=== PATIENT | female | born 1980 | race Caucasian/White ===

== ENCOUNTER → 2016-06-19 | Outpatient (CLI) | payer BC ==
--- NOTE | 2016-06-19 16:12 | US ---
EXAMINATION TYPE: US pelvic complete DATE OF EXAM: 06/19/2016 3:47 PM COMPARISON: NONE CLINICAL HISTORY: 36-year-old female N92.4 Pre Yesika Menorrhagia. Patient states heavy menses, anemia Date of LMP: 05/17/2016 TECHNIQUE: Multiple transabdominal sonographic images of the pelvis are obtained. FINDINGS: Uterus: Anteverted measuring 8.6 x 3.7 x 4.1 cm Endometrial Stripe: 0.4 cm, within normal limits. Right Ovary: 3.5 x 2.2 x 3.1 cm for a volume of 12.7 mL. There is a dominant follicle or functional cyst measuring 1.5 cm within. Left Ovary: 2.1 x 1.4 x 2.2 cm for a volume of 3.3 mL. No evident adnexal abnormality or cul-de-sac free fluid. IMPRESSION: No specific abnormality of the pelvis utilizing transabdominal scanning.
== END | disposition home or self-care (01) ==
LOC: RADUSWWP 15:34
PROVIDERS: ATTEND Family Medicine
DX: N92.4 Excessive bleeding in the premenopausal period (principal)
CPT/HCPCS: 76856

== ENCOUNTER → 2023-07-03 | Outpatient (CLI) | payer BC ==
--- NOTE | 2023-07-05 08:38 | MM ---
Reason for Exam: Screening (asymptomatic). Last mammogram was performed 9 year(s) and 10 month(s) ago. Patient History: Menarche at age 13. First Full-Term at age 21. Premenopausal. Maternal grandmother had breast cancer, age 52. Risk Values: Erica 5 year model risk: 0.6%. NCI Lifetime model risk: 8.9%. Prior Study Comparison: 09/09/2013 Bilateral Screening Mammogram, [facility]. 09/16/2013 Right Diagnostic Mammogram, [facility]. Tissue Density: The breasts are heterogeneously dense, which may obscure small masses. Findings: Analyzed By CAD. No suspicious grouped calcifications and benign-appearing calcifications. There is an area of asymmetric density in the upper outer margin the right breast. Spot compression view recommended. Overall Assessment: Incomplete: need additional imaging evaluation, BI-RAD 0 Management: Diagnostic Mammogram of the right breast. . Patient should continue monthly self-breast exams. A clinical breast exam by your physician is recommended on an annual basis. This exam should not preclude additional follow-up of suspicious palpable abnormalities. Note on Erica scores and lifetime risk: 1. A Erica score greater than 3% is considered moderate risk. If this is the case, consider specialist referral to assess eligibility for a risk reducing agent. 2. If overall lifetime risk for the development of breast cancer is 20% or higher, the patient may qualify for future screening with alternating mammogram and breast MRI. Electronically signed and approved by: Thomas Becerra M.D. Radiologis
== END | disposition home or self-care (01) ==
LOC: RADMAMWWP 10:48
PROVIDERS: ATTEND Family Medicine
DX: Z12.31 Encounter for screening mammogram for malignant neoplasm of breast (principal); Z80.3 Family history of malignant neoplasm of breast
CPT/HCPCS: 77063; 77067

== ENCOUNTER → 2023-07-10 | Outpatient (CLI) | payer BC ==
--- NOTE | 2023-07-10 13:49 | MM ---
Reason for Exam: Additional evaluation requested from abnormal screening. Last screening mammogram was performed less than 1 month ago. Patient History: Menarche at age 13. First Full-Term at age 21. Premenopausal. Maternal grandmother had breast cancer, age 52. Risk Values: Erica 5 year model risk: 0.6%. NCI Lifetime model risk: 8.9%. Prior Study Comparison: 09/09/2013 Bilateral Screening Mammogram, [facility]. 07/03/2023 Bilateral MG 3D screening mammo w/cad, [facility]. Tissue Density: Right: The breasts are heterogeneously dense, which may obscure small masses. Findings: Analyzed By CAD. Persistent 1.5 cm circumscribed isodense mass approximately 10:00 right breast in a peripheral location. Further ultrasound evaluation recommended. Overall Assessment: Incomplete: need additional imaging evaluation, BI-RAD 0 Management: Diagnostic Breast Ultrasound of the right breast. Electronically signed and approved by: Alannah Lopez M.D. Radiologist
--- NOTE | 2023-07-10 15:08 | USB ---
Reason for Exam: Additional evaluation requested from abnormal screening. Patient History: Menarche at age 13. First Full-Term at age 21. Premenopausal. Maternal grandmother had breast cancer, age 52. Risk Values: Erica 5 year model risk: 0.6%. NCI Lifetime model risk: 8.9%. Technique: Method: Whole Breast Handheld. Prior Study Comparison: 09/09/2013 Bilateral Screening Mammogram, [facility]. 09/16/2013 Right Diagnostic Mammogram, [facility]. 07/03/2023 Bilateral MG 3D screening mammo w/cad, [facility]. Findings: The whole breast of the right breast, the axilla of the right breast and the retroareolar of the right breast were scanned. A complete US of all four quadrants of the breast, axilla, and retro-areolar region were reviewed. At the 9:00 position of a 9 cm from the nipple, there is a lobulated hypoechoic mass with some peripheral vascularity measuring 1.8 x 1.6 x 1.3 cm. Posterior through-transmission is present. No other solid or cystic lesion or axillary lymphadenopathy. Overall Assessment: Suspicious, BI-RAD 4 Management: Ultrasound Core Biopsy of the right breast. Results were given to the patient verbally at the time of exam. Electronically signed and approved by: Alannah Lopez M.D. Radiologist
== END | disposition home or self-care (01) ==
LOC: RADMAMWWP 13:18
PROVIDERS: ATTEND Family Medicine
DX: R92.331 Mammographic heterogeneous density, right breast (principal); Z80.3 Family history of malignant neoplasm of breast
CPT/HCPCS: 77061; 77065

== ENCOUNTER → 2023-07-18 | Day surgery (SDC) | payer BC ==
--- NOTE | 2023-07-25 13:36 | MM ---
Reason for Exam: Post Procedure Mammogram. Last screening mammogram was performed less than 1 month ago. Patient History: Menarche at age 13. First Full-Term at age 21. Premenopausal. Maternal grandmother had breast cancer, age 52. Risk Values: Erica 5 year model risk: 0.6%. NCI Lifetime model risk: 8.9%. Prior Study Comparison: 09/16/2013 Right Diagnostic Mammogram, [facility]. 07/03/2023 Bilateral MG 3D screening mammo w/cad, [facility]. 07/10/2023 Right US breast workup RT, [facility]. 07/10/2023 Right MG 3D work up w/cad RT, [facility]. Tissue Density: Right: The breasts are heterogeneously dense, which may obscure small masses. Pathology Description: Location: 9 o'clock. Needle Type: Mammotome Cores: 6 Skin Nicks: 1 Gauge: 13 The procedure of ultrasound guided core biopsy was explained to the patient. Benefits, alternatives, and risks were discussed. An informed consent was then obtained. A timeout was performed. The patient was placed in supine positioning for imaging and for the procedure. The overlying skin was prepped and draped in usual sterile fashion. Lidocaine was used as anesthetic into the skin and subcutaneous tissue up to area of concern in the right breast. A small skin clarence was made with surgical scalpel. Under ultrasound guidance, a 12-gauge vacuum assisted biopsy gun device was used to obtain 6 core samples. A biopsy clip was left in lesion. Hydromark butterfly core marker was placed. The patient tolerated the procedure well without any immediate complication. The patient was kept in the radiology department for short stay after the procedure and then discharged home in stable condition. Postprocedure mammogram: The patient was transferred to mammography for physician ordered post procedure mammogram for clip placement verification. Impression: Successful ultrasound guided core biopsy of area of concern in the right breast, full pathology results to follow. Recommendations: 1. Recommendations are pending pathology results. Pathology Results: Result: Benign, Fibrocystic change. Pathology and radiology were reviewed. Findings are discordant. RIGHT BREAST, NINE O'CLOCK, CORE BIOPSY: Benign breast tissue with fibrocystic changes. Rare microcalcifications are identified. Overall Assessment: Benign Assessment: MG diagnostic mammo RT wo CAD - Right: Suspicious, BI-RAD 4. Management: Surgical Consultation of the right breast. Consider needle localization and surgical excision. Electronically signed and approved by: Waqar Klein D.O. Radiologis
== END ==
LOC: RADUSWWP 07:37
PROVIDERS: ATTEND Family Medicine
DX: R92.8 Other abnormal and inconclusive findings on diagnostic imaging of breast (principal)
CPT/HCPCS: 88305; 77065; 19083; A4648

== ENCOUNTER → 2023-08-08 | Outpatient (CLI) | payer BC ==
[2023-08-08 09:34] VITALS: BP 130/80; PULSE 88; RESP 17; TEMP 98.1
--- NOTE | 2023-08-08 10:19 | P.GSCN ---
History of Present Illness Consult date: 08/08/23 Reason for Consult: abnormal right breast radiograph Requesting physician: Thomas Trammell History of present illness: Janine is a 43 year old female seen in consultation for Dr. Trammell regarding a radiographic abnormality in the right breast. She had a bilateral mammogram on 07-03-23 which led to a right breast diagnostic mammogram and ultrasound on 07-10-23. These led to an ultrasound guided core biopsy on 07-18-23. This was benign but felt to be discordant. This was personally reviewed with Dr. Crain. This was a routine screening mammogram on 07-03-2023, the patient did not feel any new lumps masses or nodules of concern in either breast. She is not complaining of any recent trauma or infection in the breast. She is not complaining of any nipple discharge. She has never had any surgery on either breast. Note Dr. Trammell/ Tony THOMPSON 07-03-23 reviewed caffeine: coffee and pop daily nicotine: none, stopped 20 years ago chocolate: occasional BCP: used them many years ago for < 3 years, IUD Merina used for 7 years, recently removed about 1 month ago hormones: none Family History: maternal grandmother: breast cancer, leukemia Hormonal History: menarche: 13 [id number], breast fed: yes, age at first live : 21 periods ? regular, LMP: May 2023 Surgical History: gastric bypass Medical History: suspected VAZQUEZ severe chronic anemia ? cause (occasional iron infusion); followed by Dr. Mckeon Social History: nicotine: as above alcohol: occasional drugs: none Review of Systems - Constitutional Reports sweats, Reports weight gain, Denies fever, Denies weight loss - EENT Eyes: denies blurred vision Ears: deny: decreased hearing Ears, nose, mouth and throat: Denies dysphagia - Breasts bilateral: as per HPI - Cardiovascular Reports palpitations, Reports shortness of breath, Denies chest pain - Respiratory Denies cough, Denies 7 - Gastrointestinal Reports as per HPI, Reports diarrhea - Genitourinary Genitourinary: Denies dysuria, Denies hematuria Menstruation: Reports as per HPI - Musculoskeletal Reports myalgias - Integumentary Integumentary Comment(s): scalp dermatitis - Neurological Reports headaches, Denies syncope - Psychiatric Reports anxiety, Reports depression - Endocrine Reports fatigue, Reports weight change - Hematologic/Lymphatic Reports as per HPI Hematologic/Lymphatic Comment(s): bruises easily - Allergic/Immunologic Reports as per HPI Past Medical History Additional Past Medical History / Comment(s): low iron, unknown cause History of Any Multi-Drug Resistant Organisms: None Reported Additional Past Surgical History / Comment(s): Harrison-n-y 2009 Past Anesthesia/Blood Transfusion Reactions: No Reported Reaction Past Psychological History: Anxiety, Depression, PTSD Smoking Status: Former smoker Past Alcohol Use History: None Reported Additional Past Alcohol Use History / Comment(s): quit smoking 2002 Past Drug Use History: Marijuana Additional Drug Use History / Comment(s): rarely THC use - Past Family History Father History Unknown: Yes Mother History Unknown: Yes Medications and Allergies Home Medications Medication Instructions Recorded Confirmed Type Cetirizine HCl [Zyrtec] 10 mg PO DAILY 08/08/22 08/08/23 History Montelukast [Singulair] 10 mg PO DAILY 08/08/22 08/08/23 History Sertraline [Zoloft] 100 mg PO DAILY 08/08/22 08/08/23 History traZODone HCL [Trazodone HCl] 100 mg PO DAILY 08/08/22 08/08/23 History Allergies Allergy/AdvReac Type Severity Reaction Status Date / Time latex AdvReac Rash/Hives Verified 08/08/23 09:26 Penicillins AdvReac Rash/Hives Verified 08/08/23 09:26 Surgical - Exam Vital Signs Temp Pulse Resp BP Pulse Ox 98.1 F 88 17 130/80 96 08/08/23 09:27 08/08/23 09:27 08/08/23 09:27 08/08/23 09:27 08/08/23 09:27 - General moderate distress - Eyes normal ocular movement - Neck trachea midline - Respiratory normal respiratory effort, clear to auscultation - Cardiovascular Rhythm: regular Heart Sounds: normal: S1, S2 - Abdomen Abdomen: soft, non tender, no guarding, no rigid, no rebound - Integumentary normal turgor - Neurologic no disoriented, no combative - Musculoskeletal normal gait - Psychiatric oriented to time, oriented to person, oriented to place, speech is normal, memory intact Breast Exam: BRA: 42D Inspection: Bilateral grade 3 ptosis Well-healed scar from prior right breast core biopsy Palpation: Right breast: Multi positional exam fibroglandular tissue, slight increased nodularity at the 10 o'clock position no discrete mass Right axilla: No adenopathy of concern Left breast: Multi positional exam no dominant masses or nodules of concern Left axilla: No adenopathy of concern Results Mammogram and ultrasound personally reviewed with Dr. Crain Assessment and Plan Assessment: Impression: Radiographic abnormality right breast BI-RADS 4/core biopsy discordant History of chronic severe anemia BMI 46.1 Plan: medical clearance check HGB Needle localization excisional lumpectomy of lesion of concern, possible right oncoplastic tissue transfer I discussed with the patient and her the risks and benefits of the procedure. We have discussed repeating a core biopsy however secondary to the radiographic appearance of the abnormality it is felt that this will most likely need to come out no matter what. The patient and her understand and wish to proceed. Of concern is her chronic severe anemia. We will obtain a hem oglobin and will get medical clearance prior to needle localization and lumpectomy. Risk of the procedure include but are not limited to bleeding, infection, reaction to the anesthetic. If the findings were to be discordant then further tissue acquisition may be necessary. They understand and wish to proceed. CC: Dr. Trammell
== END ==
LOC: WWCWWP 09:07
PROVIDERS: ATTEND Surgery
DX: R92.341 Mammographic extreme density, right breast (principal); R92.8 Other abnormal and inconclusive findings on diagnostic imaging of breast; Z80.3 Family history of malignant neoplasm of breast; Z87.891 Personal history of nicotine dependence; Z87.39 Personal history of other diseases of the musculoskeletal system and connective tissue; Z88.0 Allergy status to penicillin; Z91.040 Latex allergy status

== ENCOUNTER → 2023-09-06 | Outpatient (CLI) | payer BC ==
[2023-09-06 10:20] VITALS: BP 143/96; PULSE 70; RESP 16; TEMP 98.1
--- NOTE | 2023-09-06 10:36 | P.PN ---
Subjective Progress Note Date: 09/06/23 Principal diagnosis: discordant right breast core biopsy abnormal right breast radiograph Requesting physician: Thomas Trammell History of present illness: Janine is a 43 year old female seen in consultation for Dr. Trammell regarding a radiographic abnormality in the right breast. She had a bilateral mammogram on 07-03-23 which led to a right breast diagnostic mammogram and ultrasound on 07-10-23. These led to an ultrasound guided right core biopsy on 07-18-23. This was benign but felt to be discordant. This was personally reviewed with Dr. Crain. This was a routine screening mammogram on 07-03-2023, the patient did not feel any new lumps masses or nodules of concern in either breast. She is not complaining of any recent trauma or infection in the breast. She is not complaining of any nipple discharge. She has never had any surgery on either breast. Note Dr. Trammell/ Tony THOMPSON 07-03-23 reviewed Surgical clearance obtained from Dr. Mckeon on 09-04-2023, hemoglobin at that time 12.4 caffeine: coffee and pop daily nicotine: none, stopped 20 years ago chocolate: occasional BCP: used them many years ago for < 3 years, IUD Merina used for 7 years, recently removed about 1 month ago hormones: none Family History: maternal grandmother: breast cancer, leukemia Hormonal History: menarche: 13 [id number], breast fed: yes, age at first live : 21 periods ? regular, LMP: May 2023 Surgical History: gastric bypass Medical History: suspected VAZQUEZ severe chronic anemia ? cause (occasional iron infusion); followed by Dr. Mckeon Social History: nicotine: as above alcohol: occasional drugs: none Review of Systems - Constitutional Reports sweats, Reports weight gain, Denies fever, Denies weight loss - EENT Eyes: denies blurred vision Ears: deny: decreased hearing Ears, nose, mouth and throat: Denies dysphagia - Breasts bilateral: as per HPI - Cardiovascular Reports palpitations, Reports shortness of breath, Denies chest pain - Respiratory Denies cough, - Gastrointestinal Reports as per HPI, Reports diarrhea - Genitourinary Genitourinary: Denies dysuria, Denies hematuria Menstruation: Reports as per HPI - Musculoskeletal Reports myalgias - Integumentary Integumentary Comment(s): scalp dermatitis - Neurological Reports headaches, Denies syncope - Psychiatric Reports anxiety, Reports depression - Endocrine Reports fatigue, Reports weight change - Hematologic/Lymphatic Reports as per HPI Hematologic/Lymphatic Comment(s): bruises easily - Allergic/Immunologic Reports as per HPI Past Medical History Additional Past Medical History / Comment(s): low iron, unknown cause History of Any Multi-Drug Resistant Organisms: None Reported Additional Past Surgical History / Comment(s): Harrison-n-y 2010 Past Anesthesia/Blood Transfusion Reactions: No Reported Reaction Past Psychological History: Anxiety, Depression, PTSD Smoking Status: Former smoker Past Alcohol Use History: None Reported Additional Past Alcohol Use History / Comment(s): quit smoking 2002 Past Drug Use History: Marijuana Additional Drug Use History / Comment(s): rarely THC use - Past Family History Father History Unknown: Yes Mother History Unknown: Yes Medications and Allergies Home Medications Medication Instructions Recorded Confirmed Type Cetirizine HCl [Zyrtec] 10 mg PO DAILY 08/08/22 08/08/23 History Montelukast [Singulair] 10 mg PO DAILY 08/08/22 08/08/23 History Sertraline [Zoloft] 100 mg PO DAILY 08/08/22 08/08/23 History traZODone HCL [Trazodone HCl] 100 mg PO DAILY 08/08/22 08/08/23 History Allergies Allergy/AdvReac Type Severity Reaction Status Date / Time latex AdvReac Rash/Hives Verified 08/08/23 09:26 Penicillins AdvReac Rash/Hives Verified 08/08/23 09:26 Objective - Vital Signs Vital signs: Intake & Output 09/05/23 09/06/23 09/06/23 18:59 06:59 18:59 Weight 129.274 kg - Constitutional General appearance: Present: cooperative - EENT Eyes: Present: EOMI - Neck Neck: Present: normal ROM - Respiratory Respiratory: bilateral: CTA - Cardiovascular Heart sounds: normal: S1, S2 - Integumentary Integumentary: Present: normal turgor - Musculoskeletal Musculoskeletal: Present: gait normal - Psychiatric Psychiatric: Present: A&O x's 3, appropriate affect, intact judgment & insight - Additional findings Additional findings: Breast Exam: BRA: 42D Inspection: Bilateral grade 3 ptosis Well-healed scar from prior right breast core biopsy Palpation: Right breast: Multi positional exam fibroglandular tissue, slight increased nodularity at the 10 o'clock position no discrete mass Right axilla: No adenopathy of concern Left breast: Multi positional exam no dominant masses or nodules of concern Left axilla: No adenopathy of concern Assessment and Plan Assessment: Impression: Radiographic abnormality right breast BI-RADS 4/core biopsy discordant History of chronic severe anemia; most recent Hgb 7-9-24 12.4 BMI 46.1 Plan: medical clearance obtained from Dr. Mckeon Needle localization excisional lumpectomy of lesion of concern right breast , possible right oncoplastic tissue transfer I discussed with the patient and her the risks and benefits of the procedure. We have discussed repeating a core biopsy however secondary to the radiographic appearance of the abnormality it is felt that this will most likely need to come out no matter what. The patient and her understand and wish to proceed. Of concern is her chronic severe anemia. We will obtain a hemoglobin and will get medical clearance prior to needle localization and lumpectomy. Risk of the procedure include but are not limited to bleeding, infection, reaction to the anesthetic. If the findings were to be discordant then further tissue acquisition may be necessary. They understand and wish to proceed. Functional assessment: Arm abduction past Preoperative education given to the patient CC: Dr. Trammell
== END ==
LOC: WWCWWP 09:00
PROVIDERS: ATTEND Surgery
DX: R92.8 Other abnormal and inconclusive findings on diagnostic imaging of breast (principal); R92.341 Mammographic extreme density, right breast; Z86.2 Personal history of diseases of the blood and blood-forming organs and certain disorders involving the immune mechanism; Z80.3 Family history of malignant neoplasm of breast; Z88.0 Allergy status to penicillin; Z87.891 Personal history of nicotine dependence; Z91.040 Latex allergy status

== ENCOUNTER 2023-09-11 08:09 | Day surgery (SDC) | payer BC ==
[2023-09-06 10:26] VITALS: BMI 47.4
[~2023-09-11 08:09] MED LIST: HYDROmorphone 0.5 MG/0.5 ML SYRINGE IVP PRN; LIDOCAINE 1% (10MG/ML) FOR IV START INTRADERMA PRN; MIDAZOLAM 2 MG/2 ML VIAL IV PRN; fentaNYL (PF) 50 MCG/ML 2 ML AMP IVP PRN
[2023-09-11] MEDS: LACTATED RINGERS 1,000 ML IV SCH (08:52)
[2023-09-11] MEDS: IV FLUID CONTINUATION 1,000 ML IV ONE (08:53)
[2023-09-11] MEDS: ALPRAZolam 0.5 MG TAB PO STA (09:03)
[2023-09-11] MEDS: ONDANSETRON 4 MG/2 ML VIAL IVP ONE (09:03)
[2023-09-11] MEDS: DEXAMETHASONE SOD PHOSPHATE 4 MG/ML 1 ML VIAL IV ONE (09:03)
[2023-09-11] MEDS: ACETAMINOPHEN TAB 500 MG TAB PO PRN (09:03)
[2023-09-11] MEDS: LIDOCAINE 1% INJ 10MG/ML (20 ML MDV) SQ ONE ×3 (10:00→12:42)
[2023-09-11] MEDS: HEPARIN SODIUM,PORCINE 5,000 UNIT/ML 1 ML VIAL SQ PRN (10:39)
[2023-09-11] MEDS ORDERED: fentaNYL (PF) 50 MCG/ML 2 ML AMP ONE (11:35)
[2023-09-11] MEDS ORDERED: LIDOCAINE 1% INJ 10MG/ML (20 ML MDV) ONE (11:35)
[2023-09-11] MEDS ORDERED: GLYCOPYRROLATE 0.2 MG/ML 2 ML VIAL ONE (11:35)
[2023-09-11] MEDS ORDERED: MIDAZOLAM 2 MG/2 ML VIAL ONE (11:35)
[2023-09-11] MEDS ORDERED: PROPOFOL 10 MG/ML 20 ML VIAL IV ONE (11:35)
[2023-09-11] MEDS ORDERED: ePHEDrine 50 MG/ML 1 ML VIAL ONE (11:35)
[2023-09-11] MEDS ORDERED: ROCURONIUM 10 MG/ML (5 ML VIAL) IV ONE (11:35)
[2023-09-11] MEDS ORDERED: NEOSTIGMINE 1 MG/ML 10 ML VIAL ONE (11:35)
[2023-09-11] MEDS: ceFAZolin 3 GM in SODIUM CHLORIDE 0.9% 100 ML IVPB PRN (11:40)
--- NOTE | 2023-09-11 12:53 | P.BCAON ---
Date of Procedure: 09/11/23 Preoperative Diagnosis: Discordant right breast core biopsy Postoperative Diagnosis: Same Procedure(s) Performed: Needle localization lumpectomy of discordant lesion, oncoplastic tissue transfer 42 cm Anesthesia: JOSEFAA Surgeon: Tiana Liu Estimated Blood Loss (ml): 3 IV fluids (ml): 500 Pathology: other (Breast tissue/radiograph reveals area of concern had been removed) Condition: stable Disposition: same day Indications for Procedure: Discordant right breast core biopsy Operative Findings: Fibrofatty breast tissue with a dense nodule in the area of concern Description of Procedure: The patient was first seen in the radiology department for needle localization of the area of concern was performed. The patient was then brought to the operative suite. Following induction of anesthesia the right breast was prepped and draped in a sterile fashion. An incision was made and carried down to the hook of the needle. Surrounding tissue was excised. The specimen was painted for orientation. Radiograph revealed the lesion of concern as well as the clip had been removed. The cavity was well irrigated. After we are sure that hemostasis was attained titanium clips were placed. A superior pillar 5 x 3 cm was formed. An inferior pillar 4 x 3 cm was formed. The cavity itself was 5 x 3 cm. The total oncoplastic tissue transfer was 42 cm. The pillars were brought together and secured using 3-0 Vicryl suture. Subcutaneous 3-0 Vicryl suture was placed. A 4-0 Monocryl subcuticular suture was placed. 10 cc of 1% lidocaine was injected into the incision. The patient tolerated the procedure in stable condition. All instrument and sponge counts were correct at the end of the case.
[2023-09-11 13:12] VITALS: TEMP 97.1
[2023-09-11 14:24] VITALS: PULSE 57; RESP 20
[2023-09-11 14:25] VITALS: BP 113/69
--- NOTE | 2023-09-19 10:44 | MM ---
Reason for Exam: Post Procedure Mammogram. Last screening mammogram was performed 2 month(s) ago. Patient History: Menarche at age 13. First Full-Term at age 21. Premenopausal. 07/18/2023, Benign US biopsy breast VAD RT on the right side. Maternal grandmother had breast cancer, age 52. Risk Values: Erica 5 year model risk: 0.9%. NCI Lifetime model risk: 10.8%. Prior Study Comparison: 07/03/2023 Bilateral MG 3D screening mammo w/cad, [facility]. 07/10/2023 Right MG 3D work up w/cad RT, [facility]. 07/18/2023 Right MG diagnostic mammo RT wo CAD, [facility]. Tissue Density: Right: The breasts are heterogeneously dense, which may obscure small masses. Pathology Description: Location: 9 o'clock. Needle Type: 7 cm Kopan The needle localization procedure with wire placement for surgical excision was explained to the patient. Benefits, alternatives, and risks were discussed. An informed consent was then obtained. A timeout was performed. The overlying skin was prepped in usual sterile fashion. Lidocaine was used as anesthetic into the skin and subcutaneous tissue up to the level of area of concern. A 7 cm needle was used. It was placed using a lateral approach under ultrasound guidance. Subsequent 2 view mammogram show the wire to be in satisfactory position relative to the targeted area. The wire was placed under ultrasound observation without difficulty into the very dense tissue.The wire was fixed to patient's skin. Images were reviewed and case discussed with the referring surgeon prior to surgery. The patient tolerated the procedure well without any immediate complication. The patient was kept in the radiology department for short stay after the procedure and then taken to surgery for surgical excision. Specimen: Biopsy marker and wire are identified in specimen mammogram. Ultrasound specimen was also performed. Impression: 1. Successful needle localization with wire placement and surgical excision of biopsy marker. Pathology Results: Result: Benign, Fibroadenoma. Pathology and radiology were reviewed. Findings are concordant. RIGHT BREAST, NEEDLE LOCALIZATION EXCISION: Fibroadenoma, completely excised. Background fibrocystic changes and previous biopsy site. Overall Assessment: Benign Assessment: MG diagnostic mammo RT wo CAD - Right: Benign, BI-RAD 2. Management: Diagnostic Mammogram of the right breast in 6 months. Electronically signed and approved by: Waqar Klein D.O. Radiologis
== END 2023-09-11 14:35 | disposition home or self-care (01) ==
LOC: OR 08:09
PROVIDERS: ATTEND Surgery
DX: D24.1 Benign neoplasm of right breast (principal); N60.11 Diffuse cystic mastopathy of right breast; Z80.3 Family history of malignant neoplasm of breast; J45.909 Unspecified asthma, uncomplicated; F41.8 Other specified anxiety disorders; D64.9 Anemia, unspecified; F43.10 Post-traumatic stress disorder, unspecified; Z87.891 Personal history of nicotine dependence; Z88.0 Allergy status to penicillin; Z91.018 Allergy to other foods; Z91.013 Allergy to seafood; Z91.040 Latex allergy status; Z79.899 Other long term (current) drug therapy
CPT/HCPCS: 81025; 88307; 77065; 76098; 76999; 19285; 19301; 14301; C1819; J2250; J1644; J1100; J2710; J0690; J2405; J2001; J3010; J2704; J1596

== ENCOUNTER → 2023-09-20 | Outpatient (CLI) | payer BC ==
[2023-09-20 14:40] VITALS: BP 113/77; PULSE 80; RESP 17; TEMP 98.3
--- NOTE | 2023-09-20 14:49 | P.BCPO ---
Progress Note - Text Progress Note Date: 09/20/23 Janine is status post resection of a fibroadenoma from the right breast on 09-11-2023. Postoperatively she has done well without complaints. Lungs: Clear Heart: Regular rate and rhythm Incision: Clean and dry Impression: Patient doing well status post excision of fibroadenoma right breast Plan: Right breast mammogram and ultrasound in 6 months with examination at that time CC: Thomas Trammell Post Op Education - Post Op Education Post Op Education Provided Date: 09/20/23 - Functional Assessment Performed?: Yes (arm abduction, passed) Referal Provided?: No Path Report - Was patient given path report? Path Report Date Given: 09/20/23
== END ==
LOC: WWCWWP 13:55
PROVIDERS: ATTEND Surgery
DX: Z48.817 Encounter for surgical aftercare following surgery on the skin and subcutaneous tissue (principal); Z85.3 Personal history of malignant neoplasm of breast; Z98.890 Other specified postprocedural states; Z91.040 Latex allergy status; Z88.0 Allergy status to penicillin

== ENCOUNTER → 2024-03-17 | Outpatient (CLI) | payer OTHER ==
--- NOTE | 2024-03-17 13:44 | MM ---
Reason for Exam: Follow-up at short interval from prior study. Last screening mammogram was performed 8 month(s) ago. Patient History: Menarche at age 13. First Full-Term at age 21. Premenopausal. 09/11/2023, US breast surgical speciment RT on the Right side. 09/11/2023, Benign US breast localization RT on the right side. 07/18/2023, Benign US biopsy breast VAD RT on the right side. Maternal grandmother had breast cancer, age 52. Last menstrual period: 02/15/2024 Risk Values: Erica 5 year model risk: 1.6%. NCI Lifetime model risk: 14.1%. Prior Study Comparison: 07/10/2023 Right MG 3D work up w/cad RT, [facility]. 07/18/2023 Right MG diagnostic mammo RT wo CAD, [facility]. 09/11/2023 Right MG diagnostic mammo RT wo CAD, [facility]. Tissue Density: Right: The breasts are heterogeneously dense, which may obscure small masses. Findings: Analyzed By CAD. Interval postsurgical change lateral right breast relating to fibroadenoma excision. No suspicious persisting abnormality on 3-D images. Given the change in breast appearance following surgery, additional six-month follow-up is recommended. No suspicious calcification or other discrete abnormality is seen. Overall Assessment: Probably benign, BI-RAD 3 Management: Diagnostic Mammogram of both breasts in 6 months. Total one-year follow-up right breast after surgery for fibroadenoma. Annual exam of the left breast. Results were given to the patient verbally at the time of exam. Patient should continue monthly self-breast exams. A clinical breast exam by your physician is recommended on an annual basis. This exam should not preclude additional follow-up of suspicious palpable abnormalities. Note on Erica scores and lifetime risk: 1. A Erica score greater than 3% is considered moderate risk. If this is the case, consider specialist referral to assess eligibility for a risk reducing agent. 2. If overall lifetime risk for the development of breast cancer is 20% or higher, the patient may qualify for future screening with alternating mammogram and breast MRI. [facility], , 03/17/2024 1:41 PM. Electronically signed and approved by: Alannah Lopez M.D. Radiologist
== END | disposition home or self-care (01) ==
LOC: RADMAMWWP 13:06
PROVIDERS: ATTEND Surgery
DX: R92.8 Other abnormal and inconclusive findings on diagnostic imaging of breast (principal); Z80.3 Family history of malignant neoplasm of breast; R92.331 Mammographic heterogeneous density, right breast; Z98.890 Other specified postprocedural states; R92.2 Inconclusive mammogram
CPT/HCPCS: 77061; 77065